=== PATIENT | male | born 1995 | race Caucasian/White ===

== ENCOUNTER → 2017-08-31 | Outpatient (CLI) | payer BC ==
[2017-08-31 14:46] LABS: ALBUMIN/GLOBULIN RATIO 1.11 (1.00-1.93); ALKALINE PHOSPHATASE 78 U/L (45-117); ALT/SGPT 52 U/L (12-78); ANION GAP 8 MEQ/L (8-16); AST/SGOT 21 U/L (15-37); BILIRUBIN,TOTAL 0.2 MG/DL (0.2-1.0); BLOOD UREA NITROGEN 12 MG/DL (7-18); CALCIUM LEVEL 10.1 MG/DL (8.5-10.1); CARBON DIOXIDE LEVEL 26 MEQ/L (21-32); CHLORIDE LEVEL 105 MEQ/L (98-107); CREATININE FOR GFR 1.08 MG/DL (0.70-1.30); FREE T4 0.81 NG/DL (0.76-1.46); GLOMERULAR FILTRATION RATE > 60.0 (>60); GLUCOSE, FASTING 91 MG/DL (70-105); POTASSIUM SERUM 4.5 MEQ/L (3.5-5.1); SODIUM LEVEL 139 MEQ/L (136-145); TOTAL PROTEIN 7.6 GM/DL (6.4-8.2)
== END ==
LOC: M SMT 09:08
PROVIDERS: ATTEND Family Medicine
DX: E66.09 Other obesity due to excess calories (principal); Z83.3 Family history of diabetes mellitus

== ENCOUNTER → 2019-03-27 | Outpatient (REF) | payer BC ==
[2019-03-28 07:04] LABS: SEMEN APPEARANCE OPAQUE (OPAQUE)
[2019-03-28 07:05] LABS: SEMEN VISCOSITY VISCOUS (LIQUID); SEMEN pH 8.5 (7.0-8.0); SPERM CONCENTRATION 146.2 M/ml (>=15.0); WBC CONCENTRATION <=1 M/ml (<=1 M/ml)
== END ==
LOC: M LAB REF 12:17
PROVIDERS: ATTEND Internal Medicine
DX: N46.9 Male infertility, unspecified (principal)

== ENCOUNTER 2021-02-17 18:07 | Emergency (ER) | payer BC ==
[~2021-02-17] VITALS: Ht 185.4 cm; Wt 134.0 kg
[2021-02-17] MEDS ORDERED: HYDR-3716 (18:29)
[2021-02-17] MEDS ORDERED: SULF1TAB93 (18:29)
[2021-02-17] MEDS ORDERED: LIDOCAINE W/EPINEPHRINE 1% 20ML VIAL SC ONE (21:10)
[2021-02-17] MEDS ORDERED: PERCOCET 5MG/325MG TAB PO ONE (21:40)
[2021-02-17 22:08] VITALS: BP 144/71
== END 2021-02-17 22:14 | disposition home or self-care (01) ==
LOC: M ED 18:07
DX: L05.01 Pilonidal cyst with abscess (principal); F17.200 Nicotine dependence, unspecified, uncomplicated; Z88.0 Allergy status to penicillin

== ENCOUNTER 2025-01-11 10:19 | Day surgery (SDC) | payer BC ==
[~2025-01-11] VITALS: Ht 188 cm; Wt 128.2 kg
[~2025-01-11 10:19] MED LIST: ASHW500C PO; B-12100010 PO; BACTDSTA; CALC500T52 PO; FAMO40TA3 PO; HYDR-3716; MELO7.5T35 PO; TURM500T PO; VARE1TAB2 PO; VITA400T15 PO
[2025-01-11] MEDS ORDERED: LR 1,000 ML IV SCH ×3 (11:05→18:15)
[2025-01-11] MEDS ORDERED: LIDOCAINE 2% 100MG/5ML SDV (FOR ANES.) As Ordered ONE (12:15)
[2025-01-11] MEDS ORDERED: ROCURONIUM BROMIDE 50MG/5ML VIAL As Ordered ONE (12:15)
[2025-01-11] MEDS ORDERED: propofoL 200 MG/20 ML VIAL As Ordered ONE (12:15)
[2025-01-11] MEDS ORDERED: ONDANSETRON 4MG 2ML VIAL As Ordered ONE (12:15)
[2025-01-11] MEDS ORDERED: fentaNYL 250 MCG/5 ML INJECTION As Ordered ONE (12:16)
[2025-01-11] MEDS ORDERED: MIDAZOLAM INJ 2MG/2ML VIAL As Ordered ONE (12:16)
[2025-01-11] MEDS ORDERED: EPINEPHrine 1MG/10ML SYRINGE 1.5IN As Ordered ONE (12:18)
[2025-01-11] MEDS ORDERED: LACRILUBE (AKWA TEARS) OPHTH OINT 3.5GM As Ordered ONE (12:34)
[2025-01-11] MEDS: COCAINE 4% 4ML NASAL SOLUTION BTL As Ordered ONE (14:15)
[2025-01-11] MEDS: OXYMETAZOLINE 0.05% NASAL SPRAY As Ordered ONE (14:23)
[2025-01-11] MEDS ORDERED: SUGAMMADEX SODIUM 500 MG/5 ML VIAL (BRIDION) As Ordered ONE (14:28)
[2025-01-11] MEDS ORDERED: ACETAMINOPHEN 1000MG/100ML IV BAG As Ordered ONE (14:38)
[2025-01-11] MEDS ORDERED: LABETALOL 100MG/20ML VIAL As Ordered ONE (14:50)
[2025-01-11] MEDS: LIDOCAINE W/EPINEPHRINE 1% 20ML VIAL As Ordered ONE (15:30)
[2025-01-11] MEDS ORDERED: fentaNYL 100 MCG/2 ML INJECTION IV PRN (15:55)
[2025-01-11] MEDS: ONDANSETRON 4MG 2ML VIAL IV PRN (16:29)
[2025-01-11 17:40] VITALS: BP 128/72; TEMP 97.8; O2SAT 98
[2025-01-11] MEDS ORDERED: ANEXSIA, NORCO 7.5MG/325MG TABLET(HYDROCODONE/APAP) PO PRN (18:15)
== END 2025-01-11 18:02 | disposition home or self-care (01) ==
LOC: M SDC 10:19
PROVIDERS: ATTEND Otolaryngology
DX: J32.8 Other chronic sinusitis (principal); J34.2 Deviated nasal septum; J34.3 Hypertrophy of nasal turbinates; F17.210 Nicotine dependence, cigarettes, uncomplicated; Z79.899 Other long term (current) drug therapy; Z79.1 Long term (current) use of non-steroidal anti-inflammatories (NSAID); K21.9 Gastro-esophageal reflux disease without esophagitis
CPT/HCPCS: 30140; 30520; 31253; 31267; 61782; 88305; A6024; C9143; J0131; J1100; J1920; J2250; J2405; J3010